=== PATIENT | male | born 1985 | race Caucasian/White ===

== ENCOUNTER 2018-11-11 01:35 | Emergency (ER) | payer SELFPAY ==
[~2018-11-11] VITALS: Ht 185.4 cm; Wt 74.8 kg
[2018-11-11] MEDS ORDERED: LIDOCAINE 1% INJ 20 ML 20 ML VIAL INJ ONE (02:00)
[2018-11-11] MEDS ORDERED: TETANUS,DIPTH,PERTUSS P/F (BOOSTRIX) 0.5 ML VIAL IM ONE (02:00)
--- NOTE | 2018-11-11 02:00 | NUR ---
LACERATION CLEANED WITH HIBICLENS/SALINE SOLUTION.
--- NOTE | 2018-11-11 03:05 | ED General ---
General Chief Complaint: Laceration Stated Complaint: LACERATION RT HAND Nursing Triage Note: 2.5CM LACERATION TO RIGHT THUMB Nursing Sepsis Screen: No Definite Risk Source of Information: Patient Exam Limitations: No Limitations History of Present Illness Date Seen by Provider: Nov 11, 2018 Time Seen by Provider: 01:48 Initial Comments This 33-year-old gentleman presents to the emergency room with a laceration over the base of his left thumb on the dorsal aspect caused by the family on his car. Bleeding is now controlled. He is not up-to-date on his tetanus immunization. Extensor tendons appear intact. Allergies and Home Medications Allergies Coded Allergies: No Known Drug Allergies (Unverified , 11/11/18) Home Medications No Active Prescriptions or Reported Meds Patient Home Medication List Home Medication List Reviewed: Yes Review of Systems Review of Systems Constitutional: no symptoms reported EENTM: no symptoms reported Respiratory: no symptoms reported Cardiovascular: no symptoms reported Gastrointestinal: no symptoms reported Genitourinary: no symptoms reported Musculoskeletal: no symptoms reported Skin: see HPI Psychiatric/Neurological: No Symptoms Reported Hematologic/Lymphatic: No Symptoms Reported Past Uybjtzg-Fohsas-Gvojru Hx Past Med/Social Hx: Reviewed Nursing Past Med/Soc Hx Patient Social History Alcohol Use: Occasionally Uses Recreational Drug Use: Yes Drug of Choice: CANNIBUS Smoking Status: Current Everyday Smoker Type Used: Cigarettes 2nd Hand Smoke Exposure: Yes Recent Foreign Travel: No Contact w/Someone Who Travel: No Recent Infectious Disease Expo: No Recent Hopitalizations: No Physical Abuse: No Sexual Abuse: No Mistreated: No Fear: No Immunizations Up To Date Tetanus Booster (TDap): More than 5yrs Seasonal Allergies Seasonal Allergies: No Past Medical History Surgeries: No Respiratory: No Cardiac: No Neurological: No Genitourinary: No Gastrointestinal: No Musculoskeletal: No Endocrine: No HEENT: No Cancer: No Psychosocial: No Integumentary: No Blood Disorders: No Physical Exam Vital Signs Vital Signs - First Documented 11/11/18 01:45 Temp 97.3 Pulse 64 Resp 16 B/P (MAP) 130/87 (101) Pulse Ox 99 O2 Delivery Room Air Capillary Refill : Less Than 3 Seconds Height, Weight, BMI Height: 6'1.00" Weight: 165lbs. oz. 74.440866fq; BMI Method:Stated General Appearance: No Apparent Distress, WD/WN HEENT: Normal ENT Inspection Respiratory: Lungs Clear, Normal Breath Sounds Cardiovascular: Regular Rate, Rhythm, No Edema Extremity: Other (2.5 cm laceration over the base of the right thumb on the dorsal aspect. Control bleeding. Extensor function intact.) Neurologic/Psychiatric: Alert, Oriented x3, No Motor/Sensory Deficits, Normal Mood/Affect, content specialist II-XII Norm as Tested Skin: Normal Color, Warm/Dry, Other (See above) Procedures/Interventions Wound Location: Upper Extremities Other Wound Location Right hand at the dorsal base of thumb Wound Length (cm): 2.5 Wound's Depth, Shape: linear, irregular, sub Q Wound Explored: clean Irrigated w/ Saline (ccs): 250 Betadine Prep?: Yes Volume Anesthetic (ccs): 3 Suture: Prolene Suture Size: 5-0 Number of Sutures: 5 Sterile Dressing Applied?: Yes Progress Open wound was sprayed with lidocaine. Skin was then cleaned with alcohol. Local anesthetic was injected. Skin was scrubbed with chlorhexidine and saline and then irrigated with saline. Skin was prepped with Betadine and sutures were applied in an interrupted fashion. Wound was dressed with a large Band-Aid and antibiotic ointment. Progress/Results/Core Measures Suspected Sepsis Recent Fever Within 48 Hours: No Infection Criteria Present: None New/Unexplained Altered Menta: No Sepsis Screen: No Definite Risk SIRS Temperature:97.3 Pulse: 64 Respiratory Rate: 16 Blood Pressure 130 /87 Mean: 101 Results/Orders My Orders Medications Given in ED Vital Signs/I&O Capillary Refill : Less Than 3 Seconds Blood Pressure Mean: 101 Progress Note : Progress Note Tetanus immunization was administered and wound was approximated with sutures. Departure Impression Primary Impression: Laceration of right hand Qualified Codes: S61.411A - Laceration without foreign body of right hand, i nitial encounter Disposition: HOME, SELF-CARE Condition: Improved Departure-Patient Inst. Decision time for Depature: 02:00 Referrals: NO,LOCAL PHYSICIAN (PCP) Primary Care Physician Patient Instructions: Laceration Repair With Stitches (DC) Add. Discharge Instructions: Keep the wound clean and dry. You may wash your hands and shower but do not submerge or expose to dirty environments such as dishwashing. Keep covered when working or in dirty environments. Otherwise you may leave the wound open to air. Monitor for signs of infection such as increasing redness, increasing swelling, increasing pain, puslike drainage, or fever. Return to care promptly if you notice these symptoms. You may take Tylenol (acetaminophen) and/or ibuprofen for pain. Return in about 8-10 days to have sutures removed. All discharge instructions reviewed with patient and/or family. Voiced understanding. Scripts No Active Prescriptions or Reported Meds KATHRYN MORRISON MD Nov 11, 2018 03:05
[2018-11-11 03:08] VITALS: BP 130/87
== END 2018-11-11 03:09 | disposition home or self-care (01) ==
LOC: ER 01:38
DX: S61.411A Laceration without foreign body of right hand, initial encounter (principal); F12.10 Cannabis abuse, uncomplicated; F17.210 Nicotine dependence, cigarettes, uncomplicated; Z23 Encounter for immunization; W26.8XXA Contact with other sharp object(s), not elsewhere classified, initial encounter
CPT/HCPCS: 12001; 90471; 90715